=== PATIENT | female | born 2000 | race American Indian/Alaskan Native ===

== ENCOUNTER 2019-04-09 17:45 | Emergency (ER) | payer SELFPAY ==
[2019-04-09 18:10] VITALS: BP 119/80
--- NOTE | 2019-04-09 18:10 | Event Note ---
ED Screening Note ED Screening Note: CP that began a hour ago states she has been shaking states it feels like a tightness states she has tingling in the arms No SI/HI LNMP: last week PMHx anxiety does not take anything for anxiety states she has been prescribed something before but never picked it up no allergies +marijuana +tobacco +occ drinker no other drug use This initial assessment/diagnostic orders/clinical plan/treatment(s) is/are subject to change based on patients health status, clinical progression and re-assessment by fellow clinical providers in the ED. Further treatment and workup at subsequent clinical providers discretion. Patient/guardian urged not to elope from the ED as their condition may be serious if not clinically assessed and managed. Initial orders include: EKG, CXR, UA, UDS, urine preg
[2019-04-09 19:10] LABS: HCG Qualitative,Urine Negative (Negative)
[2019-04-09 19:18] LABS: Amphetamine Screen,Urine PRESUMPTIVE NEGATIVE; Benzodiazepines Screen,Urine PRESUMPTIVE NEGATIVE; Cocaine Screen,Urine PRESUMPTIVE NEGATIVE; Methadone Screen,Urine PRESUMPTIVE NEGATIVE; Opiate Screen,Urine PRESUMPTIVE NEGATIVE
[2019-04-09 19:20] LABS: Bilirubin,Urine NEG (Negative); Blood,Urine MOD (Negative); Color,Urine Yellow (Yellow); Mucus,Urine FEW /HPF; Protein,Urine <15 mg/dL mg/dL (Negative); Urobilinogen,Urine < 2.0 mg/dL (<2.0)
[2019-04-09 19:37] LABS: Cannabinoid Screen,Urine PRESUMPTIVE POSITIVE
[2019-04-09] MEDS ORDERED: TYLENOL PO ONE (19:39)
[2019-04-09] MEDS ORDERED: VISTARIL PO ONE (19:39)
--- NOTE | 2019-04-09 19:50 | XRay Report ---
CHEST PA AND LATERAL VIEWS INDICATION: CP. COMPARISON: None FINDINGS: Support devices: None Heart: Normal Lungs/Pleura: No acute pulmonary or pleural findings. IMPRESSION: 1. No significant abnormality. Signer Name: Raheel Hope MD Signed: 04/09/2019 7:46 PM Workstation Name: [id number] [id number]
--- NOTE | 2019-04-09 20:30 | Emergency Department Report ---
ED General Adult HPI - General Chief complaint: Anxiety Stated complaint: CHEST PAIN/KAYCEE Time Seen by Provider: 04/09/19 18:07 Source: patient, EMS Mode of arrival: Ambulatory Limitations: No Limitations - History of Present Illness Initial comments: Patient is a nulliparous 18-year-old -[place] female with past medical history of anxiety, and not on any medication presents to the ED with complaint of acute onset persistent chest pain and tightness with tingling sensation on her upper extremities bilaterally, shortness of breath and shaking for the last 2 hours. Patient states that she was sitting at home when she suddenly started having the symptoms. Patient states that she has felt similar symptoms in the past but did not come to the hospital. Patient states that she does not take any medicine for anxiety. Patient denies diaphoresis, nausea, vomiting, abdominal pain, dizziness, headache, change in vision, sore throat, neck pain, back pain, dysuria or urinary frequency and urgency or heavy lifting or injury. Patient states that she does not smoke cigarettes and marijuana, and is not on any control. MD Complaint: chest tightness, tingling arms, dyspnea, shaking -: Sudden, hour(s) (2) Location: chest Radiation: non-radiation Severity scale (0 -10): 1 Quality: dull Consistency: constant Improves with: none Worsens with: none Associated Symptoms: chest pain. denies: denies other symptoms, confusion, cough, diaphoresis, headaches, loss of appetite, malaise, nausea/vomiting, rash, shortness of breath, syncope, weakness Treatments Prior to Arrival: none - Related Data Previous Rx's Medication Instructions Recorded Last Taken Type Naproxen [Naproxen DR] 375 mg PO Q12H PRN #20 tablet.dr 04/09/19 Unknown Rx Ranitidine HCl [Zantac] 150 mg PO Q12H #30 tablet 04/09/19 Unknown Rx hydrOXYzine PAMOATE [Vistaril] 25 mg PO Q6HR PRN #30 capsule 04/09/19 Unknown Rx Allergies Allergy/AdvReac Type Severity Reaction Status Date / Time No Known Allergies Allergy Verified 04/09/19 18:10 ED Review of Systems ROS: Stated complaint: CHEST PAIN/KAYCEE Other details as noted in HPI Constitutional: denies: chills, fever Eyes: denies: eye pain, eye discharge, vision change ENT: denies: ear pain, throat pain Respiratory: shortness of breath. denies: cough, SOB with exertion, SOB at rest, wheezing Cardiovascular: chest pain (tightness). denies: palpitations Endocrine: no symptoms reported. denies: excessive sweating, flushing, intolerance to cold, increased hunger, increased urine, unexplained weight gain Gastrointestinal: denies: abdominal pain, nausea, diarrhea Genitourinary: denies: urgency, dysuria, discharge Musculoskeletal: denies: back pain, joint swelling, arthralgia Skin: denies: rash, lesions Neurological: denies: headache, weakness, paresthesias Psychiatric: anxiety. denies: depression, visual hallucinations, homicidal thoughts, suicidal thoughts Hematological/Lymphatic: denies: easy bleeding, easy bruising ED Past Medical Hx - Past Medical History Previous Medical History?: Yes Hx Psychiatric Treatment: Yes (anxiety) - Surgical History Past Surgical History?: No - Social History Smoking Status: Current Every Day Smoker Substance Use Type: Alcohol, Marijuana - Medications Home Medications: Home Medications Medication Instructions Recorded Confirmed Last Taken Type Naproxen [Naproxen DR] 375 mg PO Q12H PRN #20 tablet.dr 04/09/19 Unknown Rx Ranitidine HCl [Zantac] 150 mg PO Q12H #30 tablet 04/09/19 Unknown Rx hydrOXYzine PAMOATE [Vistaril] 25 mg PO Q6HR PRN #30 capsule 04/09/19 Unknown Rx ED Physical Exam - General Limitations: No Limitations General appearance: alert, in no apparent distress - Head Head exam: Present: atraumatic, normocephalic, normal inspection - Eye Eye exam: Present: normal appearance, PERRL, EOMI. Absent: scleral icterus, conjunctival injection - ENT ENT exam: Present: normal exam, normal orophraynx, mucous membranes moist, TM's normal bilaterally, normal external ear exam - Neck Neck exam: Present: normal inspection, full ROM - Respiratory Respiratory exam: Present: normal lung sounds bilaterally. Absent: respiratory distress, wheezes, rales, rhonchi, stridor, chest wall tenderness, accessory muscle use - Cardiovascular Cardiovascular Exam: Present: regular rate, normal rhythm, normal heart sounds. Absent: systolic murmur, diastolic murmur, rubs, gallop - GI/Abdominal GI/Abdominal exam: Present: soft, normal bowel sounds. Absent: distended, tenderness, guarding, rebound, hyperactive bowel sounds, hypoactive bowel sounds - Rectal Rectal exam: Present: deferred - Extremities Exam Extremities exam: Present: normal inspection, full ROM, normal capillary refill - Back Exam Back exam: Present: normal inspection, full ROM. Absent: tenderness, CVA tenderness (R), CVA tenderness (L), muscle spasm, paraspinal tenderness, vertebral tenderness - Neurological Exam Neurological exam: Present: alert, oriented X3, CN II-XII intact, normal gait, reflexes normal - Psychiatric Psychiatric exam: Present: normal affect, normal mood, anxious - Skin Skin exam: Present: warm, dry, intact, normal color. Absent: rash ED Course Vital Signs 04/09/19 04/09/19 18:08 19:44 Temperature 98.2 F Pulse Rate 108 H 87 Respiratory 20 17 Rate Blood Pressure 119/80 [Right] O2 Sat by Pulse 100 100 Oximetry - Reevaluation(s) Reevaluation #1: 04/09/19 20:39 Patient is alert and oriented 3 and is not in distress but tachycardic and anxious in triage. Chest x-ray shows no acute cardiopulmonary abnormalities. Urinalysis is unremarkable but urine drug screen is positive for marijuana use. The EKG shows normal sinus rhythm with ventricular rate of 91 bpm, and no ST or T-wave abnormalities. Patient does not have any risk factors for acute coronary syndrome or PE. Physical exam is unremarkable. Patient was treated for pain and anxiety in the ED and discharged home on anxiety medications, and advised to follow-up with her primary care physician in 3-5 days for reevaluation or return to the ED immediately if symptoms get worse. 04/09/19 20:44 ED Medical Decision Making - EKG Data EKG shows normal: sinus rhythm Rate: normal - EKG Data Interpretation: normal EKG 04/09/19 20:43 Normal sinus rhythm, ventricular rate of [address] or T wave abnormalities - Radiology Data Radiology results: report reviewed, image reviewed Chest x-ray: No acute cardiopulmonary abnormalities - Medical Decision Making Patient is alert and oriented 3 and is not in distress but tachycardic and anxious in triage. Chest x-ray shows no acute cardiopulmonary abnormalities. Urinalysis is unremarkable but urine drug screen is positive for marijuana use. The EKG shows normal sinus rhythm with ventricular rate of 91 bpm, and no ST or T-wave abnormalities. Patient does not have any risk factors for acute coronary syndrome or PE. Physical exam is unremarkable. Patient was treated for pain and anxiety in the ED and discharged home on anxiety medications, and advised to follow-up with her primary care physician in 3-5 days for reevaluation or return to the ED immediately if symptoms get worse. - Differential Diagnosis Anxiety and panic attack; Costochondritis, chest wall muscle strain Critical care attestation.: If time is entered above; I have spent that time in minutes in the direct care of this critically ill patient, excluding procedure time. ED Disposition Clinical Impression: Anxiety as acute reaction to exceptional stress, Acute chest wall pain, Acute costochondritis Disposition: TO HOME OR SELFCARE Is pt being admited?: No Does the pt Need Aspirin: No Condition: Stable Instructions: Chest Pain (ED), Costochondritis (ED), Anxiety (ED) Additional Instructions: Take medications with food, drink plenty of fluids and follow. Primary care physician in 7-10 days for reevaluation. Return to the ED immediately if symptoms get worse. Prescriptions: Naproxen [Naproxen DR] 375 mg PO Q12H PRN #20 tablet.dr PRN Reason: Pain , Severe (7-10) hydrOXYzine PAMOATE [Vistaril] 25 mg PO Q6HR PRN #30 capsule PRN Reason: Anxiety Ranitidine HCl [Zantac] 150 mg PO Q12H #30 tablet Referrals: [facility] [Outside] - 3-5 Days Time of Disposition: 20:28 Print Language: KOREAN
== END 2019-04-09 20:41 | disposition home or self-care (01) ==
LOC: ED 17:45
DX: F43.0 Acute stress reaction (principal); R07.89 Other chest pain; M94.0 Chondrocostal junction syndrome [Tietze]; F17.200 Nicotine dependence, unspecified, uncomplicated; F12.10 Cannabis abuse, uncomplicated
CPT/HCPCS: 71046; 80307; 81001; 81025; 93005; 93010; 99284; Q0177